=== PATIENT | female | born 1980 | race Caucasian/White ===

== ENCOUNTER 2024-07-03 15:46 | Emergency (ER) | payer OTHER ==
[2024-07-03 16:39] LABS: Glucose,Whole Blood 96 mg/dL (70-110)
[2024-07-03 16:40] VITALS: TEMP 98.7
--- NOTE | 2024-07-03 16:40 | ED ---
General Adult HPI - General Source: patient, RN notes reviewed Mode of arrival: ambulatory Limitations: no limitations <Susanne Yadav - Last Filed: 07/03/24 16:38> <Onofre Cary - Last Filed: 07/16/24 07:12> - General Stated complaint: Pneumonia nvd//[facility] Time Seen by Provider: 07/03/24 16:38 - History of Present Illness Initial comments: Quick note: 44-year-old female presented to the ER for evaluation of hypoglycemia. Patient is currently at [facility] for alcohol rehab. 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 Patient does not take metformin or insulin as her diabetes is controlled by diet. Patient reports she has had diarrhea over the past 2 weeks and has been taking Imodium due to this. She states this is likely due to change in diet. Patient was found to be hypoglycemic today at 37 and sent to the ER for evaluation. Patient does report a history of gastric bypass 2 years ago out of [facility]. (Susanne Yadav) - Related Data Allergies Allergy/AdvReac Type Severity Reaction Status Date / Time No Known Allergies Allergy Verified 07/03/24 16:40 Review of Systems ROS Other: All systems not noted in ROS Statement are negative. <Susanne Yadav - Last Filed: 07/03/24 16:38> ROS Other: All systems not noted in ROS Statement are negative. <Onofre Cary - Last Filed: 07/16/24 07:12> ROS Statement: Those systems with pertinent positive or pertinent negative responses have been documented in the HPI. General Exam <Susanne Yadav - Last Filed: 07/03/24 16:38> General appearance: alert, in no apparent distress Head exam: Present: atraumatic, normocephalic Eye exam: Present: normal appearance. Absent: scleral icterus, conjunctival injection ENT exam: Present: normal oropharynx Neck exam: Present: normal inspection Respiratory exam: Present: normal lung sounds bilaterally. Absent: respiratory distress, wheezes, rales, rhonchi, stridor, accessory muscle use Cardiovascular Exam: Present: regular rate, normal rhythm, normal heart sounds. Absent: systolic murmur, diastolic murmur, rubs, gallop GI/Abdominal exam: Present: soft. Absent: distended, tenderness, guarding, rebound, rigid, mass Extremities exam: Present: normal inspection, normal capillary refill. Absent: pedal edema, calf tenderness Back exam: Present: normal inspection Neurological exam: Present: alert Skin exam: Present: warm, dry, intact, normal color. Absent: rash <RaeannOnofre - Last Filed: 07/16/24 07:12> - General Exam Comments Initial Comments: Visual Physical Exam Vital signs reviewed General: Well-appearing, nontoxic, no acute distress. Head: Normocephalic, atraumatic Eyes: PERRLA, EOMI ENT: Airway patent Chest: Nonlabored breathing Skin: No visual rash, normal skin tone Neuro: Alert and oriented 3 Musculoskeletal: No gross abnormalities (Susanne Yadav) Course Vital Signs 07/03/24 07/03/24 16:36 21:14 Temperature 98.7 F Pulse Rate 78 91 Respiratory 20 18 Rate Blood Pressure 120/76 131/85 O2 Sat by Pulse 96 96 Oximetry EKG Findings - EKG Results: EKG: interpreted by ERMD, sinus rhythm, normal axis - Blocks, [place], Hypertrophy, ST Abn: QRS axis and voltage: low voltage (<0.5 MV total QRS and <1.0 MV in each precordial lead) Repolarization changes or abnormalities: nonspecific abnormality, ST segment, and/or T wave <RaeannOnofre - Last Filed: 07/16/24 07:12> Medical Decision Making <Susanne Yadav - Last Filed: 07/03/24 16:38> - Lab Data Result diagrams: 07/03/24 16:50 07/03/24 16:50 <RaeannOnofre - Last Filed: 07/16/24 07:12> - Medical Decision Making I performed the quick note portion of this chart. Electronically signed by Susanne Yadav PA-C (Susanne Yadav) Was pt. sent in by a medical professional or institution ([facility]ANNAH Aguilera, [employer]ING [employer]PERVIS[employer], urgent care, hospital, or skilled nursing...) When possible be specific @ -[No] Did you speak to anyone other than the patient for history (EMS, parent, family, police, friend...)? What history was obtained from this source @ -[No] Did you review nursing and triage notes (agree or disagree)? Why? @ -[I reviewed and agree with nursing and triage notes] Were old charts reviewed (outside hosp., previous admission, EMS record, old EKG , old radiological studies, urgent care reports/EKG's, skilled nursing records)? Report findings @ -[No old charts were reviewed] Differential Diagnosis (chest pain, altered mental status, abdominal pain women, abdominal pain men, vaginal bleeding, weakness, fever, dyspnea, syncope, headache, dizziness, GI bleed, back pain, seizure, CVA, palpatations, mental health, musculoskeletal)? @ -[not applicable] EKG interpreted by me (3pts min.). @ -[As above] X-rays interpreted by me (1pt min.). @ -[None done] CT interpreted by me (1pt min.). @ -[None done] U/S interpreted by me (1pt. min.). @ -[None done] What testing was considered but not performed or refused? (CT, X-rays, U/S, labs)? Why? @ -[None] What meds were considered but not given or refused? Why? @ -[None] Did you discuss the management of the patient with other professionals (professionals i.e. , PA, ROSE GRADING SUPERVISOR, lab, RT, psych nurse, social media designer, active directory specialist, teacher, command center officer, insurance case manager)? Give summary @ -[No] Was smoking cessation discussed for >3mins.? @ -[No] Was critical care preformed (if so, how long)? @ -[No] Were there social determinants of health that impacted care today? How? (Homelessness, low income, unemployed, alcoholism, drug addiction, transportation, low edu. Level, literacy, decrease access to med. care, fdc, rehab)? @ -[No] Was there de-escalation of care discussed even if they declined (Discuss DNR or withdrawal of care, Hospice)? DNR status @ -[No] What co-morbidities impacted this encounter? (DM, HTN, Smoking, COPD, CAD, Cancer, CVA, ARF, Chemo, Hep., AIDS, mental health diagnosis, sleep apnea, morbid obesity)? @ -[Diabetes Was patient admitted / discharged? Hospital course, mention meds given and route, prescriptions, significant lab abnormalities, going to OR and other pertinent info. @ -[Patient is 44-year-old woman here to have evaluation for episode of hypoglycemia. The blood sugar has been corrected. She is observed here and feeling well. At this point she would like to go back and finish her rehabilitation. Discussed appropriate further care and follow-up as well as return parameters Undiagnosed new problem with uncertain prognosis? @ -[No] Drug Therapy requiring intensive monitoring for toxicity (Heparin, Nitro, Insulin, Cardizem)? @ -[No] Were any procedures done? @ -[No] Diagnosis/symptom? @ -[Acute hypoglycemia, resolved Acute, or Chronic, or Acute on Chronic? @ -[Acute Uncomplicated (without systemic symptoms) or Complicated (systemic symptoms)? @ -[Uncomplicated Side effects of treatment? @ -[No] Exacerbation, Progression, or Severe Exacerbation? @ -[No] Poses a threat to life or bodily function? How? (Chest pain, [place], [place], pneumonia, PE, COPD, DKA, ARF, appy, cholecystitis, CVA, Diverticulitis, Homicidal, Suicidal, threat to staff... and all critical care pts) @ -[No] All treatments are based on ideal body weight as in ED triage (Onofre Cary) - Lab Data Lab Results 07/03/24 07/03/24 07/03/24 Range/Units 16:38 16:50 16:50 WBC 7.6 (3.8-10.6) k/uL RBC 3.49 L (3.80-5.40) m/uL Hgb 8.1 L (11.4-16.0) gm/dL Hct 26.9 L (34.0-46.0) % MCV 77.0 L (80.0-100.0) fL MCH 23.2 L (25.0-35.0) pg MCHC 30.1 L (31.0-37.0) g/dL RDW 18.3 H (11.5-15.5) % Plt Count 673 H (150-450) k/uL MPV 7.3 Neutrophils % (Manual) 58 % Lymphocytes % (Manual) 32 % Monocytes % (Manual) 7 % Eosinophils % (Manual) 3 % Neutrophils # (Manual) 4.41 (1.3-7.7) k/uL Lymphocytes # (Manual) 2.43 (1.0-4.8) k/uL Monocytes # (Manual) 0.53 (0-1.0) k/uL Eosinophils # (Manual) 0.23 (0-0.7) k/uL Nucleated RBCs 0 (0-0) /100 WBC Manual Slide Review Performed Hypochromasia Marked Anisocytosis Slight Microcytosis Slight Sodium 134 L (137-145) mmol/L Potassium 4.6 (3.5-5.1) mmol/L Chloride 104 (98-107) mmol/L Carbon Dioxide 23 (22-30) mmol/L Anion Gap 7 mmol/L BUN 8 (7-17) mg/dL Creatinine 0.64 (0.52-1.04) mg/dL Est GFR (CKD-EPI)AfAm >90 (>60 ml/min/1.73 sqM) Est GFR (CKD-EPI)NonAf >90 (>60 ml/min/1.73 sqM) Glucose 85 (74-99) mg/dL POC Glucose (mg/dL) 96 (70-110) mg/dL POC Glu Scientific Process Operator ID Polly Spence Calcium 9.2 (8.4-10.2) mg/dL Total Bilirubin 0.2 (0.2-1.3) mg/dL AST 33 (14-36) U/L ALT 36 H (4-34) U/L Alkaline Phosphatase 96 (38-126) U/L Total Protein 6.7 (6.3-8.2) g/dL Albumin 3.7 (3.5-5.0) g/dL Urine Color Urine Appearance (Clear) Urine pH (5.0-8.0) Ur Specific [place] (1.001-1.035) Urine Protein (Negative) Urine Glucose (UA) (Negative) Urine Ketones (Negative) Urine Blood (Negative) Urine Nitrite (Negative) Urine Bilirubin (Negative) Urine Urobilinogen (<2.0) mg/dL Ur Leukocyte Esterase (Negative) Urine HCG, Qual (Not Detectd) 07/03/24 07/03/24 Range/Units 16:54 16:54 WBC (3.8-10.6) k/uL RBC (3.80-5.40) m/uL Hgb (11.4-16.0) gm/dL Hct (34.0-46.0) % MCV (80.0-100.0) fL MCH (25.0-35.0) pg MCHC (31.0-37.0) g/dL RDW (11.5-15.5) % Plt Count (150-450) k/uL MPV Neutrophils % (Manual) % Lymphocytes % (Manual) % Monocytes % (Manual) % Eosinophils % (Manual) % Neutrophils # (Manual) (1.3-7.7) k/uL Lymphocytes # (Manual) (1.0-4.8) k/uL Monocytes # (Manual) (0-1.0) k/uL Eosinophils # (Manual) (0-0.7) k/uL Nucleated RBCs (0-0) /100 WBC Manual Slide Review Hypochromasia Anisocytosis Microcytosis Sodium (137-145) mmol/L Potassium (3.5-5.1) mmol/L Chloride (98-107) mmol/L Carbon Dioxide (22-30) mmol/L Anion Gap mmol/L BUN (7-17) mg/dL Creatinine (0.52-1.04) mg/dL Est GFR (CKD-EPI)AfAm (>60 ml/min/1.73 sqM) Est GFR (CKD-EPI)NonAf (>60 ml/min/1.73 sqM) Glucose (74-99) mg/dL POC Glucose (mg/dL) (70-110) mg/dL POC Glu Scientific Process Operator ID Calcium (8.4-10.2) mg/dL Total Bilirubin (0.2-1.3) mg/dL AST (14-36) U/L ALT (4-34) U/L Alkaline Phosphatase (38-126) U/L Total Protein (6.3-8.2) g/dL Albumin (3.5-5.0) g/dL Urine Color Colorless Urine Appearance Clear (Clear) Urine pH 6.5 (5.0-8.0) Ur Specific [place] 1.010 (1.001-1.035) Urine Protein Negative (Negative) Urine Glucose (UA) Negative (Negative) Urine Ketones Negative (Negative) Urine Blood Negative (Negative) Urine Nitrite Negative (Negative) Urine Bilirubin Negative (Negative) Urine Urobilinogen <2.0 (<2.0) mg/dL Ur Leukocyte Esterase Negative (Negative) Urine HCG, Qual Not Detected (Not Detectd) Disposition <Susanne Yadav - Last Filed: 07/03/24 16:38> Is patient prescribed a controlled substance at d/c from ED?: No <Onofre Cary - Last Filed: 07/16/24 07:12> Clinical Impression: History of hypoglycemia, Headache Disposition: HOME SELF-CARE Condition: Good Instructions (If sedation given, give patient instructions): Hypoglycemia in a Person with Diabetes (DC) Referrals: None,Stated [REFERRING] - 1-2 days
[2024-07-03 17:10] LABS: Appearance,Urine Clear (Clear); Bilirubin,Urine Negative (Negative); Blood,Urine Negative (Negative); Color,Urine Colorless; Glucose,Urine (UA) Negative (Negative); Ketones,Urine Negative (Negative); Leukocyte Esterase,Urine Negative (Negative); Nitrite,Urine Negative (Negative); PH, Urine 6.5 (5.0-8.0); Protein,Urine Negative (Negative); Urobilinogen,Urine <2.0 mg/dL (<2.0)
[2024-07-03 17:16] LABS: ALT 36 U/L (4-34); AST 33 U/L (14-36); African American GFR (CKD) >90 (>60 ml/min/1.73 sqM); Albumin 3.7 g/dL (3.5-5.0); Alkaline Phosphatase 96 U/L (38-126); Anion Gap 7 mmol/L; Blood Urea Nitrogen 8 mg/dL (7-17); Calcium 9.2 mg/dL (8.4-10.2); Carbon Dioxide 23 mmol/L (22-30); Chloride 104 mmol/L (98-107); Glucose 85 mg/dL (74-99); Non-African American GFR(CKD) >90 (>60 ml/min/1.73 sqM); Potassium 4.6 mmol/L (3.5-5.1); Sodium 134 mmol/L (137-145); Total Bilirubin 0.2 mg/dL (0.2-1.3); Total Protein 6.7 g/dL (6.3-8.2)
[2024-07-03 17:18] LABS: Anisocytosis Slight; HCT 26.9 % (34.0-46.0); HGB 8.1 gm/dL (11.4-16.0); Hypochromasia Marked; MCH 23.2 pg (25.0-35.0); MCHC 30.1 g/dL (31.0-37.0); Mean Platelet Volume 7.3; Microcytosis Slight; Platelet Count 673 k/uL (150-450); RBC 3.49 m/uL (3.80-5.40); RDW 18.3 % (11.5-15.5); WBC 7.6 k/uL (3.8-10.6)
[2024-07-03 17:53] LABS: Eosinophils # (M) 0.23 k/uL (0-0.7); Lymphocytes # (M) 2.43 k/uL (1.0-4.8); Monocytes # (M) 0.53 k/uL (0-1.0); Neutrophils # (M) 4.41 k/uL (1.3-7.7); Neutrophils % (M) 58 %; Nucleated Red Blood Cells 0 /100 WBC (0-0); Total Cells Counted 100
[2024-07-03] MEDS: BUTALB/APAP/CAFF 50-325-40MG TAB PO STA (21:02)
[2024-07-03 21:22] VITALS: BP 131/85; PULSE 91; RESP 18
== END 2024-07-03 21:14 | disposition home or self-care (01) ==
LOC: EC 15:46
DX: R51.9 Headache, unspecified (principal); E11.9 Type 2 diabetes mellitus without complications
CPT/HCPCS: 36415; 80053; 81003; 81025; 85025; 99284